=== PATIENT | female | born 1935 | race Caucasian/White ===

== ENCOUNTER 2016-10-07 11:34 | Emergency (ER) | payer MEDICARE, MEDICAID ==
[~2016-10-07] VITALS: Ht 154.9 cm; Wt 61.2 kg
[~2016-10-07 11:34] MED LIST: ALEN10TA6 PO; ALEN70TA27 PO; AMLO5TAB92 PO; GABA-531 PO; HYDR-1189 PO; HYDR-2470 PO; INSNLG7030 SUBCUT; INSU100V26 SQ; LEVO500T20 PO; LOSA1TAB15 PO; METH4TAB3 PO; OXYC-130 PO; SIMV40TA5 PO; TRAM50TA92 PO
[2016-10-07] MEDS ORDERED: NACL 0.9% 1,000 ML IV SCH (11:38)
[2016-10-07 11:43] VITALS: BP 177/77; PULSE 75; RESP 16; TEMP 98.2; O2SAT 99
[2016-10-07] MEDS ORDERED: ONDANSETRON HCL 4 MG/2 ML VIAL IVP ONE ×2 (11:45→16:15)
[2016-10-07] MEDS ORDERED: KETOROLAC TROMETHAMINE 30 MG VIAL IVP ONE (11:45)
--- NOTE | 2016-10-07 11:47 | NUR ---
pt ambulated to wheechair and placed inbed 8
--- NOTE | 2016-10-07 11:47 | NUR ---
Pt report received from MADISON Jernigan. Pt states that she was pulling trash out of her gardin 3 days ago and since have been experienced lower back pain and nausea. No trauma or injury noted to back. Family member at bedside.
--- NOTE | 2016-10-07 11:50 | NUR ---
ER at bedside examining patient.
--- NOTE | 2016-10-07 12:00 | NUR ---
# 20 gauge angiocath placed to LAC. Use of asceptic technique. Opsite placed over site. Blood return noted. Blood for lab drawn from site. Flushed with 10 cc of normal saline. No evidence of infiltration noted. Patient tolerated well.
[2016-10-07 12:29] LABS: BASOPHILS % (AUTO) 0.5 % (0.0-2.0); EOSINOPHILS # (AUTO) 0.3 K/uL (0.0-0.4); EOSINOPHILS % (AUTO) 2.8 % (0.0-4.0); HEMATOCRIT 32.5 % (36-48); HEMOGLOBIN 11.3 g/dL (12.0-16.0); LYMPHOCYTES # (AUTO) 0.8 K/uL (1.0-5.5); LYMPHOCYTES % (AUTO) 8.5 % (20.5-51.5); MEAN CORPUSCULAR HEMOGLOBIN 28 pg (27-31); MEAN CORPUSCULAR HGB CONC 35 % (32-36); MEAN CORPUSCULAR VOLUME 82 fL (79.0-98.0); MONOCYTES # (AUTO) 0.9 K/uL (0.0-1.0); MONOCYTES % (AUTO) 8.7 % (1.7-9.3); NEUTROPHILS # (AUTO) 7.9 K/uL (1.8-7.7); NEUTROPHILS % (AUTO) 79.5 % (40.0-70.0); PLATELET COUNT (AUTO) 264 K/uL (130-430); RED BLOOD CELL COUNT(AUTO) 3.96 MIL/uL (4.2-6.2); RED CELL DISTRIBUTION WIDTH 12.1 % (9.0-15.0); WHITE BLOOD COUNT (AUTO) 9.9 K/uL (4.8-10.8)
[2016-10-07 12:35] LABS: ANION GAP 3 (5-15); CALCIUM 9.1 mg/dL (8.4-11.0); CHLORIDE 98 mmol/L (98-107); CREATININE 1.31 mg/dL (0.55-1.30); GLUCOSE 383 mg/dL (70-99); POTASSIUM 3.7 mmol/L (3.5-5.1); SODIUM SERUM 132 mmol/L (136-145); UREA NITROGEN, BLOOD 27 mg/dL (8-21)
[2016-10-07 12:37] LABS: ALANINE AMINOTRANSFERASE 22 U/L (12-78); ALBUMIN 3.6 g/dL (3.4-4.8); ASPARTATE AMINOTRANSFERASE 23 U/L (10-37); LIPASE 396 U/L (73-393); TOTAL BILIRUBIN 0.5 mg/dL (0.0-1.0); TOTAL PROTEIN, SERUM 7.7 g/dL (6.4-8.3)
--- NOTE | 2016-10-07 13:01 | NUR ---
Patient transported to radiology via gurney, accompanied by rad staff.
--- NOTE | 2016-10-07 13:10 | NUR ---
Pt retruned from rad tolerated well.
[2016-10-07 14:51] LABS: BILIRUBIN,URINE NEGATIVE (NEGATIVE); CLARITY/URINE CLEAR (CLEAR); COLOR,URINE YELLOW (YELLOW); GLUCOSE,URINE 3+ (NEGATIVE); KETONES,URINE NEGATIVE (NEGATIVE); LEUKOCYTE ESTERASE ,URINE NEGATIVE (NEGATIVE); NITRITE, URINE NEGATIVE (NEGATIVE); PROTEIN URINE 1+ (NEGATIVE); UROBILINOGEN,URINE 0.2 (0.2-1.0)
[2016-10-07 14:54] LABS: BLOOD, URINE TRACE (NEGATIVE)
[2016-10-07 15:07] LABS: BACTERIA,URINE FEW /HPF (None Seen); WBC,URINE 0-3 /HPF (0-3)
[2016-10-07] MEDS ORDERED: IOHEXOL 350 mgI/mL, 150 ML INFUS..BTL IV ONE (15:11)
[2016-10-07] MEDS ORDERED: MORPHINE 4 MG/ML INJ. SYRINGE IVP ONE (15:15)
--- NOTE | 2016-10-07 15:30 | NUR ---
Pt medicated for nausea
[2016-10-07 16:20] VITALS: BP 164/72; PULSE 72; RESP 16; TEMP 98.2; O2SAT 99
--- NOTE | 2016-10-07 16:20 | NUR ---
Patient given written and verbal discharge instructions and verbalizes understanding. ER MD discussed with patient the results and treatment provided. Given copies of tests performed in ER. Patient in stable condition. ID arm band removed. IV catheter removed intact and dressing applied, no active bleeding. Patient educated on pain management and to follow up with PMD. Pain Scale 0. Opportunity for questions provided and answered.
== END 2016-10-07 16:20 | disposition home or self-care (01) ==
LOC: SED 11:34
DX: S39.012A Strain of muscle, fascia and tendon of lower back, initial encounter (principal); I10 Essential (primary) hypertension; E11.9 Type 2 diabetes mellitus without complications; Z79.4 Long term (current) use of insulin; X50.9XXA Other and unspecified overexertion or strenuous movements or postures, initial encounter; Y93.H2 Activity, gardening and landscaping; Y99.8 Other external cause status; Y92.89 Other specified places as the place of occurrence of the external cause
CPT/HCPCS: 36415; 71010; 71275; 72100; 72191; 74175; 80053; 81000; 82962; 83605; 83690; 84484; 85025; 85379; 85610; 85730; 87040; 93005; 96374; 96375; 96376; 99285; J1885; J2270; J2405; J7030; Q9967

== ENCOUNTER 2017-03-20 23:08 | Emergency (ER) | payer MEDICARE, MEDICAID ==
[~2017-03-20] VITALS: Ht 152.4 cm; Wt 61.2 kg
[~2017-03-20 23:08] MED LIST changes: -ALEN10TA6 PO; -ALEN70TA27 PO; -HYDR-1189 PO; -HYDR-2470 PO; -INSU100V26 SQ; -OXYC-130 PO; -TRAM50TA92 PO
[2017-03-20 23:15] VITALS: BP_SYST 165
[2017-03-20] MEDS: ALBUTEROL SULFATE 0.083% 2.5 MG/3 ML VIAL.NEB INH ONE (23:59)
[2017-03-20] MEDS: IPRATROPIUM BROM 0.5 MG/2.5 ML VIAL.NEB (ATROVENT) INH ONE (23:59)
[2017-03-21] MEDS ORDERED: IPRATROPIUM BROM 0.5 MG/2.5 ML VIAL.NEB (ATROVENT) INH ONE (00:13)
[2017-03-21] MEDS ORDERED: ALBUTEROL SULFATE 0.083% 2.5 MG/3 ML VIAL.NEB INH ONE (00:13)
[2017-03-21] MEDS ORDERED: PREDNISONE 20 MG TABLET ONE (00:37)
[2017-03-21] MEDS: DOXYCYCLINE HYCLATE 100 MG CAPSULE PO ONE (00:47)
[2017-03-21] MEDS: PREDNISONE 20 MG TABLET PO ONE (00:47)
[2017-03-21] MEDS ORDERED: DOXYCYCLINE HYCLATE 100 MG CAPSULE ONE (00:51)
[2017-03-21 01:02] LABS: GLUCOSE POCT 151 mg/dl (70-99)
[2017-03-21 01:25] VITALS: BP_SYST 138
== END 2017-03-21 01:25 | disposition home or self-care (01) ==
LOC: SED 23:34
DX: J44.1 Chronic obstructive pulmonary disease with (acute) exacerbation (principal); J40 Bronchitis, not specified as acute or chronic; E11.9 Type 2 diabetes mellitus without complications; I10 Essential (primary) hypertension; Z79.899 Other long term (current) drug therapy
CPT/HCPCS: 71010; 82962; 94640; 99283; 99284; J7512

== ENCOUNTER 2017-11-17 17:45 | Emergency (ER) | payer MEDICARE, MEDICAID ==
[~2017-11-17] VITALS: Ht 154.9 cm; Wt 59.9 kg
[~2017-11-17 17:45] MED LIST changes: +BIOT1TAB16 PO; +CYAN100067 PO; +EXCED PO; +LOSA1TAB3 PO; +UMEC1BLS IH
[2017-11-17 17:48] VITALS: BP_SYST 161
[2017-11-17 18:24] VITALS: BP_SYST 135
== END 2017-11-17 18:24 | disposition home or self-care (01) ==
LOC: SED 17:45
DX: F41.9 Anxiety disorder, unspecified (principal); I12.9 Hypertensive chronic kidney disease with stage 1 through stage 4 chronic kidney disease, or unspecified chronic kidney disease; E11.22 Type 2 diabetes mellitus with diabetic chronic kidney disease; N18.9 Chronic kidney disease, unspecified; Z79.4 Long term (current) use of insulin; Z90.710 Acquired absence of both cervix and uterus; Z98.890 Other specified postprocedural states
CPT/HCPCS: 99284

== ENCOUNTER 2018-02-24 14:12 | Emergency (ER) | payer MEDICAID, MEDICARE, OTHER ==
[~2018-02-24] VITALS: Ht 154.9 cm; Wt 61.2 kg
[~2018-02-24 14:12] MED LIST changes: +CYAN100010 PO; -CYAN100067 PO
[2018-02-24 14:35] VITALS: BP_SYST 94
[2018-02-24 16:15] VITALS: BP_SYST 100
== END 2018-02-24 16:22 | disposition home or self-care (01) ==
LOC: SED 14:12
DX: S83.92XA Sprain of unspecified site of left knee, initial encounter (principal); I12.9 Hypertensive chronic kidney disease with stage 1 through stage 4 chronic kidney disease, or unspecified chronic kidney disease; E11.22 Type 2 diabetes mellitus with diabetic chronic kidney disease; N18.9 Chronic kidney disease, unspecified; Z79.899 Other long term (current) drug therapy; X58.XXXA Exposure to other specified factors, initial encounter; Y93.89 Activity, other specified; Y92.89 Other specified places as the place of occurrence of the external cause; Y99.8 Other external cause status
CPT/HCPCS: 73564; 99284

== ENCOUNTER 2018-05-17 11:36 | Emergency (ER) | payer OTHER, MEDICAID ==
[~2018-05-17] VITALS: Ht 152.4 cm; Wt 59.0 kg
[2018-05-17 11:45] VITALS: BP_SYST 141
[2018-05-17] MEDS ORDERED: ONDANSETRON HCL 4 MG/2 ML VIAL IM ONE (12:00)
[2018-05-17] MEDS ORDERED: MORPHINE 4 MG/ML INJ. SYRINGE IVP ONE (12:00)
[2018-05-17] MEDS ORDERED: MORPHINE 4 MG/ML INJ. SYRINGE IM ONE (12:45)
[2018-05-17 14:00] VITALS: BP_SYST 141
== END 2018-05-17 14:00 | disposition home or self-care (01) ==
LOC: SED 11:36
DX: S70.01XA Contusion of right hip, initial encounter (principal); E11.29 Type 2 diabetes mellitus with other diabetic kidney complication; N28.9 Disorder of kidney and ureter, unspecified; I10 Essential (primary) hypertension; Z90.710 Acquired absence of both cervix and uterus; Z79.899 Other long term (current) drug therapy; W10.9XXA Fall (on) (from) unspecified stairs and steps, initial encounter; Y93.89 Activity, other specified; Y92.89 Other specified places as the place of occurrence of the external cause; Y99.8 Other external cause status
CPT/HCPCS: 72192; 73502; 73552; 96372; 99284; J2270; J2405

== ENCOUNTER 2018-05-30 10:40 | Outpatient (CLI) | payer OTHER, MEDICAID | END 2018-05-30 19:12 | disposition home or self-care (01) | LOC: SMI 10:40 | PROVIDERS: ATTEND Orthopaedic Surgery | DX: S32.591A Other specified fracture of right pubis, initial encounter for closed fracture (principal); X58.XXXA Exposure to other specified factors, initial encounter; Y93.89 Activity, other specified; Y92.89 Other specified places as the place of occurrence of the external cause; Y99.8 Other external cause status | CPT/HCPCS: 72195 ==

== ENCOUNTER 2018-07-25 15:24 | Emergency (ER) | payer OTHER, MEDICAID ==
[~2018-07-25] VITALS: Ht 152.4 cm; Wt 59.0 kg
[2018-07-25 15:54] VITALS: BP_SYST 149
--- NOTE | 2018-07-25 17:43 | NUR ---
Patient to ER bed 1 to gown for evaluation. Side rails up. Report given to Sukh.
--- NOTE | 2018-07-25 17:50 | NUR ---
Pt presents to ER c/o R hip pain radiating down R leg x 3 days, pt reports current pain level 8/10. However, pt still able to ambulate. Otherwise pt AOX4, speaking full sentences, no signs of acute distress, denies any other symptoms or complaints.
--- NOTE | 2018-07-25 18:50 | NUR ---
ER Dr. Andrade at bedside examining patient.
[2018-07-25 19:28] LABS: BASOPHILS % (AUTO) 0.6 % (0.0-2.0); EOSINOPHILS # (AUTO) 0.4 K/uL (0.0-0.4); EOSINOPHILS % (AUTO) 4.1 % (0.0-4.0); HEMATOCRIT 32.8 % (36-48); HEMOGLOBIN 11.1 g/dL (12.0-16.0); LYMPHOCYTES # (AUTO) 1.8 K/uL (1.0-5.5); LYMPHOCYTES % (AUTO) 20.4 % (20.5-51.5); MEAN CORPUSCULAR HEMOGLOBIN 29 pg (27-31); MEAN CORPUSCULAR HGB CONC 34 % (32-36); MEAN CORPUSCULAR VOLUME 85 fL (79.0-98.0); MONOCYTES # (AUTO) 0.8 K/uL (0.0-1.0); MONOCYTES % (AUTO) 9.5 % (1.7-9.3); NEUTROPHILS # (AUTO) 5.8 K/uL (1.8-7.7); NEUTROPHILS % (AUTO) 65.4 % (40.0-70.0); PLATELET COUNT (AUTO) 476 K/uL (130-430); RED BLOOD CELL COUNT(AUTO) 3.87 MIL/uL (4.2-6.2); RED CELL DISTRIBUTION WIDTH 12.2 % (9.0-15.0); WHITE BLOOD COUNT (AUTO) 8.9 K/uL (4.8-10.8)
--- NOTE | 2018-07-25 19:43 | NUR ---
Report received. No needs verbalized at this time. Pt states no pain when laying down, only movement and attempting to ambulate exacerbates pain. Daughter at bedside.
[2018-07-25 19:48] LABS: ANION GAP 7 (5-15); CHLORIDE 98 mmol/L (98-107); CREATININE 1.16 mg/dL (0.55-1.30); GLUCOSE 318 mg/dL (70-99); POTASSIUM 4.3 mmol/L (3.5-5.1); SODIUM SERUM 133 mmol/L (136-145); UREA NITROGEN, BLOOD 18 mg/dL (8-21)
[2018-07-25 19:49] LABS: ALANINE AMINOTRANSFERASE 18 U/L (12-78); ALBUMIN 2.9 g/dL (3.4-4.8); ASPARTATE AMINOTRANSFERASE 18 U/L (10-37); TOTAL BILIRUBIN 0.3 mg/dL (0.0-1.0)
--- NOTE | 2018-07-25 20:00 | NUR ---
X-ray at bedside.
[2018-07-25] MEDS ORDERED: KETOROLAC TROMETHAMINE 30 MG VIAL IM ONE (20:15)
--- NOTE | 2018-07-25 21:00 | NUR ---
No needs verbalized. Family members at bedside.
[2018-07-25 21:07] LABS: BILIRUBIN,URINE NEGATIVE (NEGATIVE); BLOOD, URINE NEGATIVE (NEGATIVE); CLARITY/URINE HAZY (CLEAR); COLOR,URINE YELLOW (YELLOW); GLUCOSE,URINE TRACE (NEGATIVE); KETONES,URINE NEGATIVE (NEGATIVE); LEUKOCYTE ESTERASE ,URINE 2+ (NEGATIVE); NITRITE, URINE NEGATIVE (NEGATIVE); PH,URINE 6.5 (5.0-8.0); PROTEIN URINE NEGATIVE (NEGATIVE); UROBILINOGEN,URINE 0.2 (0.2-1.0)
[2018-07-25 21:08] LABS: BACTERIA,URINE FEW /HPF (None Seen); MUCUS,URINE None Seen /LPF (None Seen); RBC,URINE NONE SEEN /HPF (0-3); WBC,URINE 20-50 /HPF (0-3)
[2018-07-25] MEDS ORDERED: LEVOFLOXACIN 500 MG TABLET PO ONE (21:15)
[2018-07-25 22:00] VITALS: BP_SYST 149
--- NOTE | 2018-07-25 22:00 | NUR ---
Patient given written and verbal discharge instructions and verbalizes understanding. ER MD discussed with patient the results and treatment provided. Patient in stable condition. ID arm band removed. Rx of Celebrex and Cipro given. Patient educated on pain management and to follow up with PMD. Pain Scale 0/10. Opportunity for questions provided and answered. Medication side effect fact sheet provided.
--- NOTE | 2018-07-26 13:58 | NUR ---
Called pt per request of radiologist, spoke with daughter. Per daughter states pt is feeling much better than yesterday and is ambulating well. Advised daughter to have her mother follow up with PMD for CT for persistant pain. Verbalized understanding.
== END 2018-07-25 22:00 | disposition home or self-care (01) ==
LOC: SED 15:24
DX: M54.41 Lumbago with sciatica, right side (principal); N39.0 Urinary tract infection, site not specified; E11.29 Type 2 diabetes mellitus with other diabetic kidney complication; N28.9 Disorder of kidney and ureter, unspecified; I10 Essential (primary) hypertension; Z79.899 Other long term (current) drug therapy
CPT/HCPCS: 36415; 73502; 80053; 81000; 85025; 87086; 87186; 96372; 99284; J1885

== ENCOUNTER 2020-12-02 16:45 | Emergency (ER) | payer MEDICARE, MEDICAID ==
[~2020-12-02] VITALS: Ht 147.3 cm; Wt 54.4 kg
[2020-12-02 16:45] VITALS: BP_SYST 158
[~2020-12-02 16:45] MED LIST changes: +SIMV-46 PO; -SIMV40TA5 PO
[2020-12-02 17:50] LABS: BASOPHILS # (AUTO) 0.1 K/uL (0.0-0.2); BASOPHILS % (AUTO) 0.7 % (0.0-2.0); EOSINOPHILS # (AUTO) 0.1 K/uL (0.0-0.4); EOSINOPHILS % (AUTO) 2.1 % (0.0-4.0); HEMATOCRIT 32.5 % (36-48); LYMPHOCYTES # (AUTO) 1.2 K/uL (1.0-5.5); MEAN CORPUSCULAR HEMOGLOBIN 30 pg (27-31); MEAN CORPUSCULAR HGB CONC 34 % (32-36); MEAN CORPUSCULAR VOLUME 88 fL (79.0-98.0); MONOCYTES % (AUTO) 13.6 % (1.7-9.3); NEUTROPHILS # (AUTO) 4.8 K/uL (1.8-7.7); NEUTROPHILS % (AUTO) 66.6 % (40.0-70.0); PLATELET COUNT (AUTO) 289 K/uL (130-430); RED CELL DISTRIBUTION WIDTH 12.6 % (9.0-15.0); WHITE BLOOD COUNT (AUTO) 7.2 K/uL (4.8-10.8)
[2020-12-02 17:55] LABS: BILIRUBIN,URINE 1+ (NEGATIVE); BLOOD, URINE NEGATIVE (NEGATIVE); CLARITY/URINE CLEAR (CLEAR); COLOR,URINE YELLOW (YELLOW); GLUCOSE,URINE 2+ (NEGATIVE); KETONES,URINE TRACE (NEGATIVE); LEUKOCYTE ESTERASE ,URINE 1+ (NEGATIVE); NITRITE, URINE NEGATIVE (NEGATIVE); PROTEIN URINE NEGATIVE (NEGATIVE); UROBILINOGEN,URINE 0.2 (0.2-1.0)
[2020-12-02 17:57] LABS: ANION GAP 9 (5-15); CALCIUM 8.9 mg/dL (8.4-11.0); CHLORIDE 99 mmol/L (98-107); CREATININE 1.57 mg/dL (0.55-1.30); GLUCOSE 310 mg/dL (70-99); POTASSIUM 3.9 mmol/L (3.5-5.1); SODIUM SERUM 136 mmol/L (136-145); UREA NITROGEN, BLOOD 36 mg/dL (8-21)
[2020-12-02 18:08] LABS: BACTERIA,URINE FEW /HPF (None Seen); RBC,URINE 0-3 /HPF (0-3)
[2020-12-02 18:09] LABS: CALCIUM OXALATE CRYSTALS,UR None Seen /HPF (None Seen); CALCIUM PHOSPHATE CRYSTALS,UR None Seen /HPF (None Seen); COARSE GRANULAR CASTS,URINE None Seen /LPF (None Seen); FINE GRANULAR CASTS,URINE None Seen /LPF (None Seen); HYALINE CASTS, URINE None Seen /LPF (None Seen); MUCUS,URINE None Seen /LPF (None Seen); OTHER CASTS, URINE None Seen /LPF (None Seen); OTHER CRYSTALS,URINE None Seen /HPF (None Seen); TRICHOMONAS,URINE None Seen /HPF (None Seen); TRIPLE PHOSPHATE CRYSTAL,UR None Seen /HPF (None Seen); URIC ACID CRYSTALS,URINE None Seen /HPF (None Seen); URINE AMORPHOUS PHOSPHATES None Seen /HPF (None Seen); URINE AMORPHOUS URATE None Seen /HPF (None Seen); WAXY CASTS,URINE None Seen /LPF (None Seen); YEAST,URINE None Seen /HPF (None Seen)
[2020-12-02 18:11] LABS: ALANINE AMINOTRANSFERASE 18 U/L (12-78); ALBUMIN 3.5 g/dL (3.4-4.8); ASPARTATE AMINOTRANSFERASE 21 U/L (10-37); TOTAL BILIRUBIN 0.3 mg/dL (0.0-1.0)
[2020-12-02] MEDS ORDERED: cefTRIAXone 1 GM IVPB PREMIX 50 ML IV ONE (19:45)
[2020-12-02] MEDS ORDERED: ACETAMINOPHEN 325 MG TABLET PO ONE (19:45)
[2020-12-02] MEDS ORDERED: CIPR500T5 PO (20:41)
[2020-12-02 21:00] VITALS: BP_SYST 170
== END 2020-12-02 21:00 | disposition home or self-care (01) ==
LOC: SED 16:45
DX: R19.7 Diarrhea, unspecified (principal); N39.0 Urinary tract infection, site not specified; I10 Essential (primary) hypertension; E11.9 Type 2 diabetes mellitus without complications; Z79.899 Other long term (current) drug therapy; Z20.822 Contact with and (suspected) exposure to COVID-19
CPT/HCPCS: 36415; 71045; 80053; 81000; 82962; 84484; 85025; 87086; 87426; 93005; 96365; 99285; J0696